=== PATIENT | female | born 1930 | race Caucasian/White ===

== ENCOUNTER 2017-02-03 09:11 | Emergency (ER) | payer MEDICARE ==
[2017-02-03 09:35] VITALS: BP 167/76
--- NOTE | 2017-02-03 09:44 | UC ---
Ear Complaint HPI - HPI Summary HPI Summary: Patient has had a increaing swelling and redness to the right ear. - History of Current Complaint Chief Complaint: UCEar Stated Complaint: RIGHT EAR COMPLAINT Time Seen by Provider: 02/03/17 09:33 Hx Obtained From: Patient ?: No Onset/Duration: Sudden Onset, Lasting Days Severity Initially: Moderate Severity Currently: Moderate Aggravating Factors: Nothing Alleviating Factors: Nothing Associated Signs/Symptoms: Positive: Swelling @ - Allergies/Home Medications Allergies/Adverse Reactions: Allergies Allergy/AdvReac Type Severity Reaction Status Date / Time No Known Allergies Allergy Verified 02/03/17 09:35 PMH/Surg Hx/FS Hx/Imm Hx Previously Healthy: Yes Endocrine History Of: Denies: Diabetes Cardiovascular History Of: Reports: Hypertension Denies: Pacemaker/ICD, Congestive Heart Failure, Deep Vein Thrombosis Respiratory History Of: Denies: Asthma GI/ History Of: Denies: Renal Disease - Surgical History Surgical History: Yes Surgery Procedure, Year, and Place: 09/17/2012 AORTA REPAIR @ [facility] ENDOVASCULAR GRAFTING - 06/2013 [facility] [address] GAUSS/CM - 1.5T ONLY PT KNOWS SHE NEEDS TO BRING IN HER CARD- OR WE WILL NOT SCAN HER. EPIDURAL BLOCK - 10/30/16, 06/2016. HERNIA REPAIR - 2012. CATARACTS - Family History Known Family History: Negative: Cardiac Disease, Hypertension - Social History Alcohol Use: Daily Substance Use Type: None Smoking Status (MU): Former Smoker Review of Systems Constitutional: Negative Skin: Other - redness Eyes: Negative ENT: Negative Respiratory: Negative Cardiovascular: Negative Gastrointestinal: Negative Genitourinary: Negative Motor: Negative Neurovascular: Negative Musculoskeletal: Negative Neurological: Negative Psychological: Negative All Other Systems Reviewed And Are Negative: Yes Physical Exam Triage Information Reviewed: Yes Appearance: Well-Appearing, Well-Nourished, Pain Distress Vital Signs: Initial Vital Signs Temp 98.5 F 02/03/17 09:23 Pulse 59 02/03/17 09:23 Resp 20 02/03/17 09:23 BP 167/76 02/03/17 09:23 Vital Signs Reviewed: Yes Eye Exam: Normal Eyes: Positive: Conjunctiva Clear ENT: Positive: Hearing grossly normal, Pharynx normal, TMs normal Dental Exam: Normal Neck exam: Normal Neck: Positive: Supple, Nontender, No Lymphadenopathy Respiratory Exam: Normal Respiratory: Positive: Chest non-tender, Lungs clear, Normal breath sounds Cardiovascular Exam: Normal Cardiovascular: Positive: RRR, No Murmur, Pulses Normal Abdominal Exam: Normal Abdomen Description: Positive: Nontender, No Organomegaly, Soft Bowel Sounds: Positive: Present Musculoskeletal Exam: Normal Musculoskeletal: Positive: Strength Intact, ROM Intact, No Edema Neurological Exam: Normal Neurological: Positive: Alert, Muscle Tone Normal Skin: Positive: Other - erythema of the aurical, tragus and ear lobe noted, appears to have some clear drainage and crusting from the tragus, like it had been scratched Ear Complaint Course/Dx - Course Course Of Treatment: hx obtained, exam performed, meds reviewed, treated for cellulitis - Differential Dx/Diagnosis Differential Diagnosis/HQI/PQRI: Cellulitis, Otitis Externa, Otitis Media, URI Provider Diagnoses: cellulitis of the right ear Discharge - Discharge Plan Condition: Stable Disposition: HOME Prescriptions: Cephalexin [Keflex 750 MG] 750 mg PO BID #14 cap Patient Education Materials: Cellulitis (ED), Warm Compress or Soak (ED) Additional Instructions: 1. take the medication as prescribed. 2. Warm compresses to the ear multiple times a day 3. follow up with any progression of swelling, pain or redness
== END 2017-02-03 09:53 | disposition home or self-care (01) ==
LOC: UCCORT 09:11
DX: H60.11 Cellulitis of right external ear (principal); Z87.891 Personal history of nicotine dependence
CPT/HCPCS: 99212; G0463

== ENCOUNTER 2019-01-30 10:44 | Emergency (ER) | payer MEDICARE ==
[2019-01-30 11:26] VITALS: BP 136/63
--- NOTE | 2019-01-30 11:39 | UC ---
Hand/Wrist HPI - HPI Summary HPI Summary: This is an 88-year-old female who developed some right wrist pain which shoots up her right forearm. She has been doing repetitive motion with a dull coloring books and very small pencils and she thinks that may have been the cause of this. She denies any fever or chills and no recent illness. - History Of Current Complaint Chief Complaint: UCUpperExtremity Stated Complaint: RIGHT WRIST PAIN Time Seen by Provider: 01/30/19 11:29 Hx Obtained From: Patient ?: No Onset/Duration: Gradual Onset Severity Initially: Mild Severity Currently: Moderate Pain Intensity: 0 Character Of Pain: Sharp Aggravating Factor(s): Movement Alleviating Factor(s): Rest Associated Signs And Symptoms: Positive: Negative - Allergies/Home Medications Allergies/Adverse Reactions: Allergies Allergy/AdvReac Type Severity Reaction Status Date / Time No Known Allergies Allergy Verified 01/30/19 11:15 Home Medications: Home Medications Amlodipine Bes/Olmesartan Med [Cash 5-40 mg Tablet] 1 tab QAM 01/30/19 [History Confirmed 01/30/19] Atorvastatin* [Lipitor*] 20 mg PO QPM 01/30/19 [History Confirmed 01/30/19] Citalopram TAB* [CeleXA TAB*] 20 mg PO QAM 01/30/19 [History Confirmed 01/30/19] Donepezil TAB* [Aricept 5 MG TAB*] 5 mg PO QPM 01/30/19 [History Confirmed 01/30] Metoprolol Tartrate TAB* [Lopressor TAB*] 25 mg PO QAM 01/30/19 [History Confirmed 01/30/19] PMH/Surg Hx/FS Hx/Imm Hx Previously Healthy: Yes Cardiovascular History: Hypertension - Surgical History Surgical History: Yes Surgery Procedure, Year, and Place: 09/17/2012 AORTA REPAIR @ [facility] ENDOVASCULAR GRAFTING - 06/2013 [facility] [address] GAUSS/CM - 1.5T ONLY PT KNOWS SHE NEEDS TO BRING IN HER CARD- OR WE WILL NOT SCAN HER. EPIDURAL BLOCK - 10/30/16, 06/2016. HERNIA REPAIR - 2012. CATARACTS - Family History Known Family History: Negative: Cardiac Disease, Hypertension - Social History Occupation: Retired Alcohol Use: Daily Alcohol Amount: GLASS OF WINE/NIGHT Substance Use Type: None Smoking Status (MU): Former Smoker Review of Systems All Other Systems Reviewed And Are Negative: Yes Skin: Positive: Negative Musculoskeletal: Positive: Other: - Patient has full range of motion but she does have more shooting pain if she lifts something with the right hand which bends the wrist. Is Patient Immunocompromised?: No Physical Exam Triage Information Reviewed: Yes Appearance: Well-Appearing, No Pain Distress, Well-Nourished Vital Signs: Initial Vital Signs Temp 98.1 F 01/30/19 11:19 Pulse 52 01/30/19 11:19 Resp 16 01/30/19 11:19 BP 136/63 01/30/19 11:19 Pulse Ox 100 01/30/19 11:19 Vital Signs Reviewed: Yes Musculoskeletal: Positive: Strength Intact, ROM Intact, Other: - Good peripheral pulses neuro sensation capillary refill, no bruising, swelling, erythema or deformity. Good finger strength with flexion and extension against resistance. The right wrist itself is nontender on palpation however she does experience shooting pain when she bends her wrist as if she is holding a watering can. Neurological: Positive: Alert, Muscle Tone Normal Hand/Wrist Course/Dx - Course Course Of Treatment: Patient is comfortable here. She may take ibuprofen at home and alternate with Tylenol for pain. She said apply moist heat to the sore areas and avoid movements that cause pain. She is to stop the repetitive motion coloring which she's been doing and she is to wear the cock-up splint and if no improvement in 1 week follow-up with the orthopedist. - Differential Dx/Diagnosis Provider Diagnosis: Tendonitis of wrist, right Discharge - Sign-Out/Discharge Documenting (check all that apply): Patient Departure All imaging exams completed and their final reports reviewed: No Studies - Discharge Plan Condition: Fair Disposition: HOME Patient Education Materials: Tendinitis (ED) Referrals: Adithya Yee MD [Primary Care Provider] - Additional Instructions: Keep the cock-up splint most of the time over the next week. May take ibuprofen for pain as directed every 8 hours with food. Keep elevated as much as possible. Avoid repetitive motion. Follow-up with an orthopedist if the pain does not improve with the splint and ibuprofen. You may apply moist heat to the sore area 4-6 times a day for 20 minutes each time. - Billing Disposition and Condition Condition: FAIR Disposition: Home - Attestation Statements Provider Attestation: Per institutional requirements, I have reviewed the chart, however, I was not consulted specifically or made aware of this patient by the midlevel provider. I did not personally evaluate, interact with , or disposition this patient.
== END 2019-01-30 11:49 | disposition home or self-care (01) ==
LOC: UCCORT 10:44
DX: M77.9 Enthesopathy, unspecified (principal); I10 Essential (primary) hypertension; Z79.899 Other long term (current) drug therapy
CPT/HCPCS: 99212; G0463

== ENCOUNTER 2019-06-28 10:38 | Emergency (ER) | payer MEDICARE ==
[2019-06-28 11:16] VITALS: BP 142/66
--- NOTE | 2019-06-28 12:11 | UC ---
Hand/Wrist HPI - HPI Summary HPI Summary: 89-year-old female presents with complaints of inability to fully extend her left ring finger after injuring it 2 weeks ago. States she was going up some steps when she lost her balance and fell forward jamming her left ring finger. States had some mild discomfort after the injury that has since resolved. She has been splinting the finger intermittently. Reports mild swelling of the DIP. Denies any numbness or tingling. - History Of Current Complaint Chief Complaint: UCUpperExtremity Stated Complaint: LEFT HAND-RING FINGER INJURY Time Seen by Provider: 06/28/19 12:06 Hx Obtained From: Patient Pain Intensity: 0 - Allergies/Home Medications Allergies/Adverse Reactions: Allergies Allergy/AdvReac Type Severity Reaction Status Date / Time No Known Allergies Allergy Verified 06/28/19 11:16 PMH/Surg Hx/FS Hx/Imm Hx Endocrine History: Dyslipidemia Cardiovascular History: Hypertension Neurological History: Dementia - Surgical History Surgical History: Yes Surgery Procedure, Year, and Place: 09/17/2012 AORTA REPAIR @ [facility] ENDOVASCULAR GRAFTING - 06/2013 [facility] [address]USS/CM - 1.5T ONLY PT KNOWS SHE NEEDS TO BRING IN HER CARD- OR WE WILL NOT SCAN HER. EPIDURAL BLOCK - 10/30/16, 06/2016. HERNIA REPAIR - 2012. CATARACTS - Family History Known Family History: Negative: Cardiac Disease, Hypertension - Social History Occupation: Retired Lives: With Family Alcohol Use: Daily Alcohol Amount: GLASS OF WINE/NIGHT Substance Use Type: None Smoking Status (MU): Former Smoker Review of Systems All Other Systems Reviewed And Are Negative: Yes Constitutional: Positive: Negative Respiratory: Positive: Negative Cardiovascular: Positive: Negative Gastrointestinal: Positive: Negative Genitourinary: Positive: Negative Musculoskeletal: Positive: Other: - See HPI Neurological: Positive: Negative Is Patient Immunocompromised?: No Physical Exam - Summary Physical Exam Summary: GENERAL APPEARANCE: Alert and cooperative older adult female who appears to be in no acute distress. CARDIAC: Normal S1 and S2. No S3, S4 or murmurs. Rhythm is regular. There is no peripheral edema, cyanosis or pallor. Extremities are warm and well perfused. Capillary refill is less than 2 seconds. Peripheral pulses intact. LUNGS: Clear to auscultation without rales, rhonchi, wheezing or diminished breath sounds. ABDOMEN: Positive bowel sounds. Soft, nondistended, nontender. No guarding or rebound. No masses or hepatosplenomegally. MUSKULOSKELETAL: ROM intact to all extremities. No joint erythema or tenderness. Normal muscular development. Normal gait. EXTREMITIES: DIP of left ring finger non-tender with mild edema. Unable to fully actively extend the distal phalanx. Full passive ROM to the DIP. No gross deformity noted. Circulation and sensation intact. SKIN: Skin normal color, texture and turgor for age. Triage Information Reviewed: Yes Vital Signs: Initial Vital Signs Temp 98.5 F 06/28/19 11:11 Pulse 54 06/28/19 11:11 Resp 16 06/28/19 11:11 BP 142/66 06/28/19 11:11 Pulse Ox 99 06/28/19 11:11 Vital Signs Reviewed: Yes Diagnostics - Radiology No standard instances Radiology Interpretation Completed By: Radiologist Summary of Radiographic Findings: Order Information: FINGER LEFT RING. HISTORY : injury s/p fall . COMPARISONS: None relevant available at the time of dictation. VIEWS: 3, Frontal, lateral, and oblique views of the fourth digit of left hand. FINDINGS: BONE DENSITY: There is diffuse osteopenia. BONES: There is no displaced fracture. 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 ALIGNMENT: There is no dislocation. SOFT TISSUES: Unremarkable. OTHER FINDINGS: None. IMPRESSION: OSTEOPENIA. NO ACUTE OSSEOUS INJURY. THE DEGREE OF OSTEOPENIA MAY MAKE A NONDISPLACED FRACTURE RADIOGRAPHICALLY OCCULT. Hand/Wrist Course/Dx - Course Course Of Treatment: 89-year-old female presents with complaints of inability to fully extend her left ring finger after injuring it 2 weeks ago. States she was going up some steps when she lost her balance and fell forward jamming her left ring finger. States had some mild discomfort after the injury that has since resolved. She has been splinting the finger intermittently. Reports mild swelling of the DIP. Denies any numbness or tingling. Afebrile. Vital signs stable. On exam DIP of left ring finger was non-tender with mild edema. Unable to fully actively extend the distal phalanx. Full passive ROM to the DIP. No gross deformity noted. Circulation and sensation intact. X-ray of the finger showed no acute osseous injury although an occult fracture could not be ruled out due to significant osteopenia. Reviewed findings with the patient. Discussed that I suspect that she may have been injury to the extensor tendon of the finger and recommending conservative treatment at this time. She was placed in a finger splint by the RN. She is to follow-up with orthopedic surgery in 5-7 days for further evaluation and treatment. Anticipatory guidance and warning symptoms were reviewed with the patient. Verbalizes understanding and agrees the plan of care. - Differential Dx/Diagnosis Differential Diagnosis/HQI/PQRI: Contusion, Dislocation, Fracture, Sprain Provider Diagnosis: Injury of extensor tendon of left hand Discharge ED - Sign-Out/Discharge Documenting (check all that apply): Patient Departure All imaging exams completed and their final reports reviewed: Yes - Discharge Plan Condition: Stable Disposition: HOME Patient Education Materials: Finger Sprain (ED) Referrals: Adithya Yee MD [Primary Care Provider] - Fredi You MD [Medical Doctor] - (Call for appointment.) Additional Instructions: The x-ray performed in the clinic today showed no evidence of a fracture or dislocation. I suspect that you have an injury to the extensor tendon of the finger. Wear the splint that was applied in the clinic. You may remove to shower but should wear at all other times. Take acetaminophen (Tylenol) according to directions as needed for pain. Follow up with orthopedic surgery in 5-7 days if symptoms do not improve. Call for an appointment. Seek immediate medical attention if you have severe pain not managed with pain medication, develop numbness or tingling in the finger, or have any worsening of symptoms. - Billing Disposition and Condition Condition: STABLE Disposition: Home
== END 2019-06-28 12:54 | disposition home or self-care (01) ==
LOC: UCCORT 10:38
DX: S66.305A Unspecified injury of extensor muscle, fascia and tendon of left ring finger at wrist and hand level, initial encounter (principal); I10 Essential (primary) hypertension; F03.90 Unspecified dementia, unspecified severity, without behavioral disturbance, psychotic disturbance, mood disturbance, and anxiety; M85.842 Other specified disorders of bone density and structure, left hand; W19.XXXA Unspecified fall, initial encounter; W23.0XXA Caught, crushed, jammed, or pinched between moving objects, initial encounter; Y92.9 Unspecified place or not applicable
CPT/HCPCS: 73140; 99212; G0463